=== PATIENT | male | born 1965 | race Caucasian/White ===

== ENCOUNTER 2020-12-25 19:43 | Emergency (ER) | payer MEDICARE ==
[~2020-12-25] VITALS: Ht 177.8 cm; Wt 75.0 kg
[~2020-12-25 19:43] MED LIST: ALLEGRA ALLERG180 MG PO; DYRENIUM100 MG PO; FENOFIBRATE160 MG PO; MECLIZINE 25 MG25 M1 PO; MOBIC15 MG PO; NORCO 5-325 TA1 EACH PO; TEGRETOL XR100 MG PO; VANCOMYCIN1.5 GM/250 IV; VICODIN 5-5001 EACH PO; ZANAFLEX2 M1 PO
[2020-12-25 20:30] LABS: URINE BLOOD 3+ (Negative); URINE CLARITY CLOUDY; URINE COLOR DARK YELLOW; URINE GLUCOSE-RANDOM NEGATIVE (Negative); URINE KETONES TRACE (Negative); URINE LEUKOCYTES-REFLEX NEGATIVE (Negative); URINE PROTEIN 3+ (Negative); URINE SPECIFIC GRAVITY >= 1.030 (1.005-1.030)
[2020-12-25 20:34] LABS: URINE BILIRUBIN 2+ (Negative); URINE NITRITE-REFLEX POSITIVE (Negative)
[2020-12-25 20:35] LABS: ICTOTEST (BILI CONFIRMATORY) Positive (Negative)
[2020-12-25 20:37] LABS: MUCUS >6 Heavy strn/LPF (None Seen); SQUAMOUS 0-3 Few /LPF (0-3); URINE RBC 3-10 Few /HPF (0-2); URINE WBC-REFLEX 0-5 Rare /HPF (0-5)
[2020-12-25 20:38] LABS: CRYSTALS None Seen /LPF (None Seen); HYALINE CASTS >10 Many /LPF (None Seen)
[2020-12-25 20:50] LABS: ABSOLUTE LYMPHOCYTES 0.8 thou/uL (0.8-5.3); ABSOLUTE MONOCYTES 1.1 thou/uL (0.0-1.2); ABSOLUTE NEUTROPHILS 4.8 thou/uL (1.6-8.1); BASOPHILS 0.1 %; HEMATOCRIT 46.8 % (42.0-52.0); HEMOGLOBIN 15.9 gm/dL (14.0-18.0); LYMPHOCYTES 12.2 %; MCH 30.1 pg (26.0-34.0); MCHC 34.1 g/dL (28.0-37.0); MCV 88.2 fL (80.0-100.0); MONOCYTES 16.3 %; MPV 8.1 fl. (7.2-11.1); NUCLEATED RBCS 0 /100WBC; PLATELET COUNT* 266 thou/uL (150-400); POLYS 71.4 %; RDW-CV 15.3 % (10.5-14.5); WBC 6.7 thou/uL (4.0-11.0)
[2020-12-25 21:00] LABS: CALCIUM 8.4 mg/dL (8.5-10.1); CREATININE 2.2 mg/dL (0.6-1.3); POTASSIUM 4.2 mmol/L (3.5-5.1)
[2020-12-25 21:09] LABS: INR 1.3; PROTIME 13.5 Seconds (9.20-11.50)
[2020-12-25 21:10] LABS: ALBUMIN 2.9 g/dL (3.4-5.0); MAGNESIUM 2.1 mg/dL (1.8-2.4); TOTAL PROTEIN 7.4 g/dL (6.4-8.2)
[2020-12-25 21:15] LABS: BE -7.7 mmol/L (-2 to +3); PCO2 43.5 mmHg (35.0-45.0)
[2020-12-25 21:17] LABS: pH 7.261 (7.340-7.450)
[2020-12-25 21:18] LABS: PO2 160.8 mmHg (75.0-100.0)
[2020-12-25 21:24] LABS: AMP/METHAMP Negative (Negative); BARBITURATES Negative (Negative); BENZODIAZEPINES Negative (Negative); COCAINE Negative (Negative); METHADONE Negative (Negative); OPIATES Negative (Negative); PCP Negative (Negative); THC Negative (Negative)
[2020-12-25 23:10] VITALS: BP 88/57
--- NOTE | 2020-12-26 09:52 | EKG ---
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[place] : 1965 Requested By: Essie Pressley Order Number: [id number] MD: Ric Jolley Measurements Intervals [place] Rate: 122 P: 73 NE: 121 QRS: -102 QRSD: 117 T: 51 QT: 364 QTc: 519 Interpretive Statements Sinus tachycardia Consider right atrial enlargement RBBB and LAFB Artifact in lead(s) V3 and baseline wander in lead(s) V3 No previous ECG available for comparison Electronically Signed On 12-26-2020 9:52:39 CDT by Ric Jolley [email or web address] <ELECTRONICALLY SIGNED> By: Ric Jolley MD, FACC 12/26/20 [id number] Ric Jolley MD, FAC /EPI
== END 2020-12-25 23:10 | disposition short-term general hospital (02) ==
LOC: M.ERS 19:43
PROVIDERS: Emergency Medicine
DX: I60.9 Nontraumatic subarachnoid hemorrhage, unspecified (principal); Z20.822 Contact with and (suspected) exposure to COVID-19; N17.9 Acute kidney failure, unspecified; J18.9 Pneumonia, unspecified organism